=== PATIENT | male | born 2000 | race African-American/Black ===

== ENCOUNTER 2019-02-19 02:20 | Emergency (ER) | payer MEDICAID ==
[~2019-02-19] VITALS: Ht 165.1 cm; Wt 60.9 kg
[2019-02-19 03:40] LABS: CLARITY URINE CLEAR (CLEAR); COLOR URINE YELLOW (YELLOW); KETONES URINE NEGATIVE (NEGATIVE); LEUKOCYTE ESTERASE URINE TRACE (NEGATIVE); NITRITE URINE NEGATIVE (NEGATIVE); OCCULT BLOOD URINE NEGATIVE (NEGATIVE); PROTEIN URINE NEGATIVE (NEGATIVE); UROBILINOGEN URINE 0.2 E.U./dL (0.2-1.0)
[2019-02-19] MEDS ORDERED: IBUPROFEN 600MG TABLET PO ONE (03:45)
[2019-02-19 05:48] VITALS: BP 116/72
== END 2019-02-19 05:50 | disposition home or self-care (01) ==
LOC: ER 02:20
DX: R10.9 Unspecified abdominal pain (principal); F12.10 Cannabis abuse, uncomplicated; V89.2XXA Person injured in unspecified motor-vehicle accident, traffic, initial encounter; Y93.89 Activity, other specified; Y92.89 Other specified places as the place of occurrence of the external cause; Y99.8 Other external cause status
CPT/HCPCS: 76705; 81003; 99284

== ENCOUNTER 2019-10-13 21:07 | Emergency (ER) | payer MEDICAID ==
[~2019-10-13] VITALS: Ht 160 cm; Wt 59.0 kg
[2019-10-13 22:45] VITALS: BP 119/72
[2019-10-13] MEDS ORDERED: IBUPROFEN 600MG TABLET PO ONE (22:45)
== END 2019-10-14 00:05 | disposition home or self-care (01) ==
LOC: ER 21:07
DX: S60.222A Contusion of left hand, initial encounter (principal); F12.10 Cannabis abuse, uncomplicated; V18.0XXA Pedal cycle driver injured in noncollision transport accident in nontraffic accident, initial encounter; Y93.55 Activity, bike riding; Y92.488 Other paved roadways as the place of occurrence of the external cause
CPT/HCPCS: 29125; 73110; 73130; 99284